=== PATIENT | female | born 1980 | race Caucasian/White ===

== ENCOUNTER → 2018-09-01 06:12 | Outpatient (CLI) | payer OTHER ==
[~2018-09-01 06:12] MED LIST: BUCALSEP SPRAY30 ML MM; CEFADROXIL500 MG PO; DOLOGESIC CAPSU1 CAP PO; MILLIPRED DP5 M1 PO; PERCOCET 5/3251 TAB PO; PHENERGAN25 MG PO
== END | disposition home or self-care (01) ==
LOC: LAB 06:12
DX: E03.8 Other specified hypothyroidism (principal); E11.9 Type 2 diabetes mellitus without complications; I10 Essential (primary) hypertension; E78.2 Mixed hyperlipidemia; M19.90 Unspecified osteoarthritis, unspecified site; M81.0 Age-related osteoporosis without current pathological fracture; N95.1 Menopausal and female climacteric states; Z13.29 Encounter for screening for other suspected endocrine disorder; E07.89 Other specified disorders of thyroid

== ENCOUNTER 2018-09-01 07:18 | Outpatient (CLI) | payer OTHER | END 2018-09-01 07:26 | disposition home or self-care (01) | LOC: NUCLEAR 07:18 | DX: M12.9 Arthropathy, unspecified (principal); M21.00 Valgus deformity, not elsewhere classified, unspecified site; M19.90 Unspecified osteoarthritis, unspecified site | CPT/HCPCS: 78315; A9503 ==

== ENCOUNTER 2019-02-10 15:26 | Emergency (ER) | payer OTHER ==
[~2019-02-10] VITALS: Ht 162.6 cm; Wt 68.0 kg
== END 2019-02-10 17:18 | disposition home or self-care (01) ==
LOC: ER 15:26
DX: S00.83XA Contusion of other part of head, initial encounter (principal); S50.01XA Contusion of right elbow, initial encounter; W18.39XA Other fall on same level, initial encounter; Y93.89 Activity, other specified; Y92.098 Other place in other non-institutional residence as the place of occurrence of the external cause; Y99.8 Other external cause status

== ENCOUNTER 2019-10-01 06:10 | Day surgery (SDC) | payer OTHER | END 2019-10-01 10:35 | disposition home or self-care (01) | LOC: AMB-ENDOS 06:10 | PROVIDERS: ATTEND Colon & Rectal Surgery | DX: K62.89 Other specified diseases of anus and rectum (principal); K29.50 Unspecified chronic gastritis without bleeding; K44.9 Diaphragmatic hernia without obstruction or gangrene; K64.0 First degree hemorrhoids ==

== ENCOUNTER 2020-03-01 13:57 | Outpatient (CLI) | payer OTHER | END 2020-03-01 14:13 | disposition home or self-care (01) | LOC: MAMO-SONO 13:57 | PROVIDERS: ATTEND Internal Medicine Cardiovascular Disease | DX: N60.02 Solitary cyst of left breast (principal); N64.59 Other signs and symptoms in breast; R92.8 Other abnormal and inconclusive findings on diagnostic imaging of breast ==

== ENCOUNTER 2022-03-13 09:03 | Outpatient (CLI) | payer OTHER | END 2022-03-13 09:10 | disposition home or self-care (01) | LOC: MAMO-SONO 09:03 | PROVIDERS: ATTEND Obstetrics & Gynecology | DX: Z12.31 Encounter for screening mammogram for malignant neoplasm of breast (principal); N60.11 Diffuse cystic mastopathy of right breast; N60.12 Diffuse cystic mastopathy of left breast ==

== ENCOUNTER 2022-08-03 05:14 | Emergency (ER) | payer OTHER ==
[~2022-08-03] VITALS: Ht 162.6 cm; Wt 59.0 kg
== END 2022-08-03 20:05 | disposition home or self-care (01) ==
LOC: ER 05:14
DX: N83.202 Unspecified ovarian cyst, left side (principal); R18.8 Other ascites

== ENCOUNTER 2024-09-15 07:10 | Outpatient (CLI) | payer OTHER | END 2024-09-15 07:17 | disposition home or self-care (01) | LOC: MAMO-SONO 07:10 | DX: N60.11 Diffuse cystic mastopathy of right breast (principal); N60.12 Diffuse cystic mastopathy of left breast ==